=== PATIENT | female | born 1960 | race African-American/Black ===

== ENCOUNTER 2016-10-21 10:32 | Emergency (ER) | payer MEDICAID ==
[~2016-10-21] VITALS: Ht 165.1 cm; Wt 92.1 kg
[2016-10-21 11:06] LABS: Basophils # (auto) 0.1 uL; Basophils % (auto) 0.6 % (0.0-2.0); CONDITION Y; Eosinophils # (auto) 0.3 uL; Hematocrit 43.5 % (36.0-46.0); Hemoglobin 15.1 g/dL (12.2-16.2); Lymphocytes # (auto) 3.3 uL; Mean Corpuscular Hemoglobin 30.5 pg (28.0-32.0); Mean Corpuscular Hgb Conc. 34.7 g/dL (32.0-36.0); Mean Platelet Volume 8.4 fL (7.4-10.4); Monocytes # (auto) 0.8 uL; Monocytes % (auto) 9.6 % (0.0-12.0); Neutrophils # (auto) 4.4 uL; Neutrophils % (auto) 49.8 % (37.0-80.0); Platelet Count (auto) 236 10^3/uL (140-450); White Blood Cell 8.8 10^3/uL (4.4-10.8)
[2016-10-21 11:31] LABS: BUN/Creatinine Ratio 15.6; Bilirubin, Total 0.7 mg/dL (0.2-1.0); Calcium 8.9 mg/dL (8.5-10.1); Potassium 3.7 mmol/L (3.5-5.1); Total Protein 8.6 g/dL (6.4-8.2)
[2016-10-21 18:26] LABS: Urine RBC None Seen /hpf (0 - 4)
[2016-10-21 19:02] LABS: Urine Bilirubin Negative (Negative); Urine Blood Negative /uL (Negative); Urine Color Yellow (Yellow); Urine Glucose Normal (Normal); Urine Ketone Negative (Negative); Urine Nitrite Negative (Negative); Urine Squamous Epithelial Cell FEW /hpf (<5); Urine pH 5.5 (5.0-8.0)
[2016-10-21 19:46] VITALS: BP 168/74
== END 2016-10-21 20:20 | disposition home or self-care (01) ==
LOC: ER 10:32
DX: H81.10 Benign paroxysmal vertigo, unspecified ear (principal); N39.0 Urinary tract infection, site not specified; E11.9 Type 2 diabetes mellitus without complications; I10 Essential (primary) hypertension; E78.5 Hyperlipidemia, unspecified
CPT/HCPCS: 36415; 70450; 71020; 80053; 81001; 82962; 85025; 93005; 94761

== ENCOUNTER 2017-04-09 13:52 | Emergency (ER) | payer MEDICAID ==
[~2017-04-09] VITALS: Ht 165.1 cm; Wt 95.3 kg
[2017-04-09 15:23] LABS: Basophils # (auto) 0.1 uL; Basophils % (auto) 1.2 % (0.0-2.0); Eosinophils # (auto) 0.2 uL; Eosinophils % (auto) 2.6 % (0.0-7.0); Hematocrit 46.9 % (36.0-46.0); Hemoglobin 16.4 g/dL (12.2-16.2); Lymphocytes # (auto) 2.9 uL; Lymphocytes % (auto) 34.7 % (10.0-50.0); Mean Corpuscular Hemoglobin 30.4 pg (28.0-32.0); Mean Corpuscular Hgb Conc. 34.9 g/dL (32.0-36.0); Mean Corpuscular Volume 87.1 fL (80.0-100.0); Monocytes # (auto) 0.7 uL; Monocytes % (auto) 8.9 % (0.0-12.0); Neutrophils # (auto) 4.4 uL; Neutrophils % (auto) 52.6 % (37.0-80.0); Nucleated Red Blood Cells % 0.2 %; Platelet Count (auto) 217 10^3/uL (140-450); Red Blood Cells 5.38 10^6/uL (4.0-5.20); Red Cell Distribution Width 13.2 % (11.8-14.3); White Blood Cell 8.3 10^3/uL (4.4-10.8)
[2017-04-09 15:43] LABS: Anion Gap 8 (5-15); BUN/Creatinine Ratio 18.4; Blood Urea Nitrogen 18 mg/dL (7-18); Carbon Dioxide 23 mmol/L (21-32); Chloride 107 mmol/L (98-107); GFR African American 75 mL/min; GFR Non-African American 62 mL/min; Glucose 135 mg/dL (74-106); Potassium 4.4 mmol/L (3.5-5.1); Sodium 138 mmol/L (136-145)
[2017-04-09 15:44] LABS: Alanine Aminotransferase 24 U/L (13-56); Albumin 3.9 g/dL (3.4-5.0); Alkaline Phosphatase 84 U/L (45-117); Aspartate Aminotransferase 17 U/L (15-37); Bilirubin, Total 0.2 mg/dL (0.2-1.0); Calcium 9.5 mg/dL (8.5-10.1); Total Protein 8.8 g/dL (6.4-8.2)
[2017-04-09 18:37] VITALS: BP 142/92
== END 2017-04-09 18:39 | disposition home or self-care (01) ==
LOC: ER 13:52
DX: I10 Essential (primary) hypertension (principal); E11.9 Type 2 diabetes mellitus without complications; E78.5 Hyperlipidemia, unspecified
CPT/HCPCS: 36415; 80053; 84484; 85025

== ENCOUNTER 2017-07-07 11:23 | Emergency (ER) | payer MEDICAID ==
[~2017-07-07] VITALS: Ht 167.6 cm; Wt 95.3 kg
[2017-07-07 11:39] VITALS: BP 188/51
[2017-07-07] MEDS ORDERED: METHOCARBAMOL 500 MG TAB PO ONE (12:45)
== END 2017-07-07 13:03 | disposition home or self-care (01) ==
LOC: ER 11:23
DX: S20.211A Contusion of right front wall of thorax, initial encounter (principal); E11.9 Type 2 diabetes mellitus without complications; E78.5 Hyperlipidemia, unspecified; I10 Essential (primary) hypertension; W01.0XXA Fall on same level from slipping, tripping and stumbling without subsequent striking against object, initial encounter; Y93.89 Activity, other specified; Y99.8 Other external cause status; Y92.89 Other specified places as the place of occurrence of the external cause
CPT/HCPCS: 71101

== ENCOUNTER 2017-12-30 12:53 | Emergency (ER) | payer MEDICAID ==
[~2017-12-30] VITALS: Ht 167.6 cm; Wt 94.3 kg
[2017-12-30 13:00] VITALS: BP 117/58
[2017-12-30] MEDS ORDERED: TETANUS-DIPTH-ACEL PERTUSSIS 0.5ML SYRG IM ONE ×2 (14:36→14:45)
== END 2017-12-30 14:57 | disposition home or self-care (01) ==
LOC: ER 12:53
DX: S61.012A Laceration without foreign body of left thumb without damage to nail, initial encounter (principal); I10 Essential (primary) hypertension; E11.9 Type 2 diabetes mellitus without complications; E78.00 Pure hypercholesterolemia, unspecified; W26.0XXA Contact with knife, initial encounter; Y93.89 Activity, other specified; Y99.8 Other external cause status; Y92.89 Other specified places as the place of occurrence of the external cause
CPT/HCPCS: 12001; 90471; 90715

== ENCOUNTER 2020-02-21 13:47 | Emergency (ER) | payer MEDICAID ==
[~2020-02-21] VITALS: Ht 170.2 cm; Wt 93.4 kg
[2020-02-21 14:30] VITALS: BP 106/48
== END 2020-02-21 15:28 | disposition home or self-care (01) ==
LOC: ER 13:47
DX: K64.9 Unspecified hemorrhoids (principal); K59.00 Constipation, unspecified; E11.9 Type 2 diabetes mellitus without complications; E78.5 Hyperlipidemia, unspecified; I10 Essential (primary) hypertension

== ENCOUNTER 2024-09-23 08:25 | Emergency (ER) | payer OTHER, MEDICAID ==
[~2024-09-23] VITALS: Ht 170.2 cm; Wt 92.7 kg
[2024-09-23] MEDS: KETOROLAC TROMETH 60MG/2ML VIAL IM ONE (09:26)
[2024-09-23 09:28] VITALS: BP 127/62; PULSE 66; RESP 20; TEMP 97.6; O2SAT 95
--- NOTE | 2024-09-23 09:49 | ED.PDOC ---
Back pain HPI HPI Comments A 63 year old female presents to the ED c/o right rib pain. Patient states she leaned over the center console of her car when something fell out of he purse and felt pain in her right rib region shortly after. Patient reports she is now experiencing right rib pain that is worse with movement. Denies fever, SOB, chest pain, abdominal pain, nausea, vomiting, diarrhea, headache, dizziness, or numbness/tingling of extremities. No other symptoms or modifying factors reported at this time. Patient is alert and oriented x4 and has a stable gait. Chief Complaint: Rib Pain Time Seen by MD: 08:41 Primary Care Provider: DENNY Torres Notes: Nurses Notes, Medications, Allergies Allergies: Coded Allergies: NO KNOWN ALLERGIES (Unverified , 06/07/14) Home Meds Active Scripts Lidocaine (LIDODERM 5% TOPICAL PATCH) 1 Patch Ph, 1 PATCH TOP UD PRN for 30 Days, #30 PATCH 0 Refills Prov:[facility]NAV [facility] NURSE 09/23/24 Information Source: Patient Mode of Arrival: Ambulatory Timing: Days Duration: Since onset, Days Location of Back pain: Other (right rib region) Severity: Moderate Prehospital treatment: None Quality: Aching Onset: Bending History of: None Modifying Factors: Movement Associated signs and symptoms: None Past Medical History PAST MEDICAL HISTORY: DM, High Lipids, HTN Surgical History: Denies all surgeries CROP OR [employer] History: Denies all CROP OR G[employer] F[employer]ER Hx Family History Family History: Reviewed,noncontributory to illness Social History Smoker: Non-Smoker Alcohol: Denies ETOH Use Drugs: Denies Drug Use Lives In: Home Constitutional: denies: chills, diaphoresis, fatigue, fever, malaise, sweats, weakness, others EENTM: denies: blurred vision, double vision, ear bleeding, ear discharge, ear drainage, ear pain, ear ringing, eye pain, eye redness, hearing loss, mouth pain, mouth swelling, nasal discharge, nose bleeding, nose congestion, nose pain, photophobia, tearing, throat pain, throat swelling, voice changes, others Respiratory: denies: cough, hemoptysis, orthopnea, SOB at rest, shortness of breath, SOB with excertion, stridor, wheezing, others Cardiovascular: denies: chest pain, dizzy spells, diaphoresis, Dyspnea on exertion, edema, irregular heart beat, left arm pain, lightheadedness, palpitations, PND, syncope, others Gastrointestinal: denies: abdomen distended, abdominal pain, blood streaked bowels, constipated, diarrhea, dysphagia, difficulty swallowing, hematemesis, melena, nausea, poor appetite, poor fluid intake, rectal bleeding, rectal pain, vomiting, others Genitourinary: denies: abnormal vagina bleeding, burning, dyspareunia, dysuria, flank pain, frequency, hematuria, incontinence, pain, , vagina discharge, urgency, others Neurological: denies: dizziness, fainting, headache, left sided numbness, left sided weakness, numbness, paresthesia, pre-existing deficit, right sided numbness, right sided weakness, seizure, speech problems, tingling, tremors, weakness, others Musculoskeletal: reports: others (right rib pain); denies: back pain, gout, joint pain, joint swelling, muscle pain, muscle stiffness, neck pain Integumetry: denies: bruises, change in color, change in hair/nails, dryness, laceration, lesions, lumps, rash, wounds, others Allergic/Immunocompromised: denies: Difficulty Healing, Frequent Infections, Hives, Itching, others Hematologic/Lymphatic: denies: anemia, blood clots, easy bleeding, easy bruising, swollen glands, others Endocrine: denies: excessive hunger, excessive sweating, excessive thirst, excessive urination, flushing, intolerance to cold, intolerance to heat, unexplained weight gain, unexplained weight loss, others Psychiatric: denies: anxiety, bipolar disorder, depression, hopeless, panic disorder, schizophrenia, sleepless, suicidal, others All Other Systems: Reviewed and Negative Physical Exam General Appearance: No Apparent Distress, Normal HEENT: Normal ENT Inspection, Pharynx Normal, TMs Normal Neck: Full Range of Motion, Non-Tender, Normal, Normal Inspection Respiratory: Chest Non-Tender, Lungs Clear, No Accessory Muscle Use, No Respiratory Distress, Normal Breath Sounds Cardiovascular: No Edema, No JVD, No Murmur, No Gallop, Normal Peripheral Pulses, Regular Rate/Rhythm Breast Exam: Deferred Gastrointestinal: No Organomegaly, Non Tender, No Pulsatile Mass, Normal Bowel Sounds, Soft Genitalia: Deferred Pelvic: Deferred Rectal: Deferred Extremities: No calf tenderness, Normal capillary refill, Normal inspection, Normal range of motion, Non-tender, No pedal edema Musculoskeletal : Location: Right (Tendness upon palpation noted to right rib region at 10th- 11th rib region.) Apperance: Normal Neurologic: Alert, certified personal trainer II-XII nml as Tested, No Motor Deficits, Normal Affect, Normal Mood, No Sensory Deficits Cerebellar Function: Normal Reflexes: Normal Skin: Dry, Normal Color, Warm Lymphatic: No Adenopathy Was a procedure done? Was a procedure done?: No Back Pain Differential Dx Differential Diagnosis: Fracture, Musculoskeletal Pain, Strain, Other (intercostal muscle strain, rib sprain, rib contusion) X-Ray, Labs, Meds, VS Vital Signs Date Time Temp Pulse Resp B/P (MAP) Pulse Ox O2 Delivery O2 Flow Rate FiO2 09/23/24 09:28 66 20 95 Room Air 09/23/24 09:28 97.6 66 20 127/62 (83) 95 97.6 09/23/24 08:35 97.6 66 20 127/82 (97) 95 97.6 EXAMINATION: XY R RIB XRAY INDICATION: Pain COMPARISON: None TECHNIQUE: Frontal view of the chest and 2 views of the right ribs history FINDINGS: No focal consolidation, pleural effusion or significant pneumothorax. Normal cardiomediastinal silhouette. No displaced right rib fracture. IMPRESSION: No acute cardiopulmonary disease. No displaced right rib fracture. ATED BY: MIGUELITO KELLER MD DICTATED DATE/TIME: 09/23/24957 SIGNED BY: MIGUELITO KELLER MD SIGNED DATE/TIME: 09/23/24957 CC: X-Ray, Labs, Meds, VS Comment A 63 year old female presents to the ED c/o right rib pain for the past 3 days. Patient arrives alert and oriented, ABC's intact, afebrile, vital signs stable, saturating well in room air Diagnostic imaging ordered by me and results interpreted by radiology : XR Ribs RT Patient was given Toradol 60mg IM. Tolerated medications with no adverse reaction. On reevaluation, patient had symptomatic improvement. Patient is stable for discharge at this time. External notes reviewed. Test results and diagnostic imaging interpreted. All diagnostic findings, discharge care, education and instructions provided Follow-up with PCP in 2 to 3 days Patient verbalized understanding and agreed to treatment plan Vital signs stable, afebrile, no acute distress noted Patient ambulatory with strong steady gait Advised to return precautions for any new or worsening symptoms, return to ER immediately for re-evaluation Patient is aware that the purpose of this visit was for an acute medical emergency requiring emergent stabilization. Chronic conditions, including malignancies have not been ruled out. Patient is instructed to follow up with PCP as directed and discharge instructions for continued care and workup. If unable to arrange follow-up, patient is to return to the emergency department for reassessment. Patient (parent or legal guardian if applicable) was given verbal and written discharge instructions and acknowledges understanding. Additional MDM Review of External, Non-ED records: External records reviewed. Discussion with independent historian: history obtained from the patient Chronic conditions affecting care: None Social determinants of health affecting care: None Consideration of admission (observation or admission): I considered escalation of care to admission for this patient, however given the reassuring workup, the patient is safe for outpatient management. Discussion with the Radiology: No Tests considered but not performed: None Prescription medication considered but not given: Lidocaine patches Images Reviewed?: Images reviewed and evaluated by me Time of 1ST Reevaluation: 10:00 Reevaluation 1ST: Improved Patient Education/Counseling: Diagnosis, Treatment, Need For Follow Up Family Education/Counseling: Diagnosis, Treatment, Need For Follow Up SEPSIS Sepsis Screen Date sepsis recognized/suspect: Sep 23, 2024 Time Sepsis recognized/suspect: 0837 Recent Procedure: No On Antibiotic Therapy: No Respiratory Rate >20: No Heart Rate >90: No Temp<36 C (96.8 F) or >38.3 C: No SBP <90 or MAP <65 mmHG: No New Acute Mental Status Change: No Is the patient on CPAP, BIPAP,: No Physician Orders R Rib Xray (09/23/24 09:16) Vital Signs Date Time Temp Pulse Resp B/P (MAP) Pulse Ox O2 Delivery O2 Flow Rate FiO2 09/23/24 09:28 66 20 95 Room Air 09/23/24 09:28 97.6 66 20 127/62 (83) 95 97.6 09/23/24 08:35 97.6 66 20 127/82 (97) 95 97.6 Departure 1 Departure Time of Disposition: 10:21 Impression: Primary Impression: Rib pain Disposition: 01 HOME / SELF CARE / HOMELESS Condition: Stable Additional Instructions: Follow up with PCP in 1-2 days. Take medications as prescribed. Return to ED for any new or worsening symptoms. e-Prescriptions Lidocaine (LIDODERM 5% TOPICAL PATCH) 1 Patch Ph 1 PATCH TOP UD PRN for 30 Days, #30 PATCH 0 Refills Prov: MANAV CHILD NP 09/23/24 Discharged With: Self Critical Care Note Critical Care Time?: No Stability Stability form required: No Heart Score Heart Score: Heart Score Response (Comments) Value History N/A 0 EKG N/A 0 Age N/A 0 Risk Factors N/A 0 Troponin N/A 0 Total 0 I personally scribed for [facility] NURSE ([email or web address]) on 09/23/24 at 09:49. Electronically submitted by Jerry Dixon (Boond). I personally scribed for MANAV CHILD NP ([email or web address]) on 09/23/24 at 09:56. Electronically submitted by Jerry Dixon (Boond). I personally scribed for [facility] NURSE ([email or web address]) on 09/23/24 at 10:32. Electronically submitted by Jerry Dixon (Boond). MANAV CHILD NP Sep 23, 2024 09:49
--- NOTE | 2024-09-23 10:00 | DVH ---
EXAMINATION: XY R RIB XRAY INDICATION: Pain COMPARISON: None TECHNIQUE: Frontal view of the chest and 2 views of the right ribs history FINDINGS: No focal consolidation, pleural effusion or significant pneumothorax. Normal cardiomediastinal silhou ette. No displaced right rib fracture. IMPRESSION: No acute cardiopulmonary disease. No displaced right rib fracture.
[2024-09-23] MEDS ORDERED: LIDO5DIS21 TOP (10:22)
== END 2024-09-23 10:38 | disposition home or self-care (01) ==
LOC: ER 08:25
DX: R07.81 Pleurodynia (principal); I10 Essential (primary) hypertension; E11.9 Type 2 diabetes mellitus without complications; E78.5 Hyperlipidemia, unspecified
CPT/HCPCS: 71101; 96372; 99283; J1885